=== PATIENT | female | born 1980 | race Caucasian/White ===

== ENCOUNTER → 2023-12-03 17:23 | Outpatient (REF) | payer OTHER, SELFPAY | LOC: WDC 17:23 | PROVIDERS: ATTENDING PHYSICIAN Obstetrics & Gynecology; FAMILY PHYSICIAN Family Medicine | DX: Z12.31 Encounter for screening mammogram for malignant neoplasm of breast (principal) | CPT/HCPCS: 77063; 77067 ==

== ENCOUNTER → 2024-12-11 17:37 | Outpatient (REF) | payer BC, SELFPAY | LOC: WDC 17:37 | PROVIDERS: ATTENDING PHYSICIAN Obstetrics & Gynecology; FAMILY PHYSICIAN Family Medicine | DX: Z12.31 Encounter for screening mammogram for malignant neoplasm of breast (principal) | CPT/HCPCS: 77063; 77067 ==